=== PATIENT | male | born 1965 | race Caucasian/White ===

== ENCOUNTER 2021-05-21 17:57 | Emergency (ER) | payer SELFPAY ==
[~2021-05-21] VITALS: Ht 190.5 cm; Wt 72.6 kg
[2021-05-21 18:11] VITALS: BP_SYST 128
[2021-05-21 18:40] VITALS: BP_SYST 128
[2021-05-21] MEDS ORDERED: KETOROLAC TROMETHAMINE 30 MG VIAL IVP ONE (19:00)
[2021-05-21] MEDS ORDERED: DIAZEPAM 10 MG/2 ML DISP.SYRIN IVP ONE (19:00)
[2021-05-21] MEDS ORDERED: LORazepam 2 MG/ML VIAL IVP ONE (19:30)
[2021-05-21 20:07] LABS: BASOPHILS # (AUTO) 0.1 K/uL (0.0-0.2); BASOPHILS % (AUTO) 0.9 % (0.0-2.0); EOSINOPHILS # (AUTO) 0.1 K/uL (0.0-0.4); EOSINOPHILS % (AUTO) 1.9 % (0.0-4.0); HEMATOCRIT 42.8 % (36-54); HEMOGLOBIN 14.6 g/dL (14.0-18.0); LYMPHOCYTES # (AUTO) 2.2 K/uL (1.0-5.5); LYMPHOCYTES % (AUTO) 30.6 % (20.5-51.5); MEAN CORPUSCULAR HEMOGLOBIN 32 pg (27-31); MEAN CORPUSCULAR HGB CONC 34 % (32-36); MEAN CORPUSCULAR VOLUME 92 fL (79.0-98.0); MONOCYTES # (AUTO) 0.7 K/uL (0.0-1.0); MONOCYTES % (AUTO) 9.2 % (1.7-9.3); NEUTROPHILS # (AUTO) 4.1 K/uL (1.8-7.7); NEUTROPHILS % (AUTO) 57.4 % (40.0-70.0); PLATELET COUNT (AUTO) 218 K/uL (130-430); RED BLOOD CELL COUNT(AUTO) 4.64 MIL/uL (4.2-6.2); WHITE BLOOD COUNT (AUTO) 7.2 K/uL (4.8-10.8)
[2021-05-21 20:19] LABS: ANION GAP 8 (5-15); CHLORIDE 104 mmol/L (98-107); GLUCOSE 103 mg/dL (70-99); POTASSIUM 3.6 mmol/L (3.5-5.1); SODIUM SERUM 137 mmol/L (136-145)
[2021-05-21 20:20] LABS: CALCIUM 8.7 mg/dL (8.4-11.0); CREATININE 1.21 mg/dL (0.55-1.30); UREA NITROGEN, BLOOD 13 mg/dL (8-21)
[2021-05-21 20:32] LABS: GFR AFRICAN AMERICAN 80 mL/min (>90)
[2021-05-21 20:36] LABS: ALANINE AMINOTRANSFERASE 65 U/L (12-78); ASPARTATE AMINOTRANSFERASE 35 U/L (10-37); THYROID STIMULATING HORMONE 1.13 uIu/mL (0.36-3.74); TOTAL BILIRUBIN 0.6 mg/dL (0.0-1.0)
[2021-05-21 20:38] LABS: ALCOHOL, BLOOD < 3 mg/dL (<10)
[2021-05-21] MEDS ORDERED: NACL 0.9% 1,000 ML IV ONE (20:45)
[2021-05-21 20:57] LABS: CKMB RELATIVE INDEX 0.4 (0.0-2.9); CREATINE KINASE MB 3.1 ng/mL (0-3.6)
== END 2021-05-21 22:58 | disposition home or self-care (01) ==
LOC: SED 17:57
DX: F23 Brief psychotic disorder (principal); F22 Delusional disorders; I49.9 Cardiac arrhythmia, unspecified; R51.9 Headache, unspecified
CPT/HCPCS: 36415; 70450; 71045; 76376; 80053; 82550; 82553; 82607; 84443; 84484; 85025; 93005; 96361; 96374; 96375; 99291; G0482; J1885; J2060; J7030